=== PATIENT | male | born 2000 | race Caucasian/White ===

== ENCOUNTER 2021-01-29 18:19 | Observation (INO) | payer OTHER, SELFPAY ==
[~2021-01-29] VITALS: Ht 172.7 cm; Wt 72.9 kg
[2021-01-29] MEDS ORDERED: CHARCOAL ACTIVATED LIQUID 25 GM/120 ML BTL PO ONE (18:45)
[2021-01-29] MEDS: NS 1,000 ML IV SCH (18:50)
[2021-01-29 19:01] LABS: BASO # 0.1 10^3/uL (0.0-0.2); BASO % 0.8 % (0.0-1.0); EOS # 0.1 10^3/uL (0.0-0.5); EOS % 0.6 % (0.0-3.0); HEMATOCRIT 47.1 % (42.0-52.0); HEMOGLOBIN 16.1 g/dl (13.5-17.5); LYMPH # 2.8 10^3/uL (1.5-5.0); LYMPH % 33.1 % (24.0-44.0); MEAN CORPUSCULAR HEMOGLOBIN 30.9 pg (27.0-33.0); MEAN CORPUSCULAR HGB CONC 34.2 g/dl (32.0-36.5); MEAN CORPUSCULAR VOLUME 90.4 fl (80.0-96.0); MONO # 0.5 10^3/uL (0.0-0.8); MONO % 5.6 % (2.0-8.0); NEUTROPHILS % 59.7 % (36.0-66.0); PLATELET COUNT, AUTOMATED 342 10^3/uL (150-450); RED BLOOD COUNT 5.21 10^6/uL (4.30-6.10); WHITE BLOOD COUNT 8.4 10^3/uL (4.0-10.0)
[2021-01-29 19:33] LABS: ACETAMINOPHEN LEVEL 48.9 UG/ML (10.0-30.0); ALBUMIN 4.8 GM/DL (3.2-5.2); ALT/SGPT 26 U/L (12-78); BILIRUBIN,DIRECT 0.2 MG/DL (0.0-0.2); BILIRUBIN,TOTAL 0.4 MG/DL (0.2-1.0); BLOOD UREA NITROGEN 5 MG/DL (7-18); CALCIUM LEVEL 11.9 MG/DL (8.5-10.1); CARBON DIOXIDE LEVEL 26 MEQ/L (21-32); CHLORIDE LEVEL 111 MEQ/L (98-107); CREATININE FOR GFR 1.05 MG/DL (0.70-1.30); ETHYL ALCOHOL (ETHANOL) 0.253 % (0.000-0.010); GLOMERULAR FILTRATION RATE > 60.0 (>60); GLUCOSE, FASTING 99 MG/DL (70-100); POTASSIUM SERUM 3.7 MEQ/L (3.5-5.1); SALICYLATE LEVEL < 1.7 MG/DL (5.0-30.0); SODIUM LEVEL 145 MEQ/L (136-145); TOTAL PROTEIN 8.2 GM/DL (6.4-8.2)
[2021-01-29] MEDS ORDERED: HOME MED LIST COMPLETE! XX SCH (20:10)
[2021-01-29 20:13] LABS: RSV AMPLIFICATION NEGATIVE (NEGATIVE)
[2021-01-29 21:33] LABS: AMPHETAMINES LEVEL URINE NEGATIVE (NEGATIVE); BARBITURATES URINE NEGATIVE (NEGATIVE); BENZODIAZEPINES URINE NEGATIVE (NEGATIVE); CANNABINOIDS URINE NEGATIVE (NEGATIVE); COCAINE METABOLITE URINE NEGATIVE (NEGATIVE); METHADONE URINE NEGATIVE (NEGATIVE); OPIATES URINE NEGATIVE (NEGATIVE); PHENCYCLIDINE URINE NEGATIVE (NEGATIVE)
[2021-01-29] MEDS ORDERED: NS 1,000 ML IV ONE ×2 (23:00)
[2021-01-30] VITALS (58 sets, daily range): BP systolic 126–189; BP diastolic 58–104
[2021-01-30] MEDS ORDERED: LORazepam 2 MG/ML VIAL IV STA ×4 (00:42→09:20)
[2021-01-30] MEDS: NS 1,000 ML IV SCH ×3 (02:38→07:28)
[2021-01-30] MEDS ORDERED: ACETAMINOPHEN TAB 650MG DOSE (2X325MG) PO PRN (06:05)
[2021-01-30] MEDS ORDERED: LORazepam 2 MG/ML VIAL IM PRN (09:05)
[2021-01-30] MEDS: ENOXAPARIN 40MG/0.4ML SYRINGE (J1650 PER 10MG) SC SCH (09:24)
[2021-01-30] MEDS: LORazepam 2 MG/ML VIAL IV PRN ×2 (10:15→14:51)
[2021-01-30] MEDS ORDERED: NS 500 ML IV STA (10:27)
[2021-01-30 10:52] LABS: ETHYL ALCOHOL (ETHANOL) < 0.003 % (0.000-0.010)
[2021-01-30 11:26] LABS: ABG BASE EXCESS -3.4 (-2.0-2.0); ABG HCO3 21.6 MEQ/L (22.0-26.0); ABG O2 SATURATION 98.9 % (95.0-99.0); ABG PARTIAL PRESSURE CO2 38.9 mmHg (35.0-45.0); ABG PARTIAL PRESSURE O2 148.2 mmHg (75.0-100.0); ABG STANDARD HCO3 21.7 MEQ/L (22.0-26.0); ABG TOTAL CO2 22.8 MEQ/L (22.0-29.0); ABG pH (ARTERIAL) 7.363 UNITS (7.350-7.450)
[2021-01-30] MEDS ORDERED: MULTIVITAMIN -ADULT INJECTION 10 ML, THIAMINE INJection 100 MG, FOLIC ACID 1 MG in NS 1... IV ONE (12:00)
[2021-01-30 12:05] LABS: BASO # 0.1 10^3/uL (0.0-0.2); BASO % 0.4 % (0.0-1.0); EOS % 0.1 % (0.0-3.0); HEMATOCRIT 41.4 % (42.0-52.0); HEMOGLOBIN 14.3 g/dl (13.5-17.5); LYMPH # 1.9 10^3/uL (1.5-5.0); LYMPH % 16.5 % (24.0-44.0); MEAN CORPUSCULAR HEMOGLOBIN 31.2 pg (27.0-33.0); MEAN CORPUSCULAR HGB CONC 34.5 g/dl (32.0-36.5); MEAN CORPUSCULAR VOLUME 90.4 fl (80.0-96.0); MONO # 0.8 10^3/uL (0.0-0.8); MONO % 7.5 % (2.0-8.0); NEUTROPHILS # 8.5 10^3/uL (1.5-8.5); NEUTROPHILS % 75.1 % (36.0-66.0); PLATELET COUNT, AUTOMATED 299 10^3/uL (150-450); RED BLOOD COUNT 4.58 10^6/uL (4.30-6.10); WHITE BLOOD COUNT 11.3 10^3/uL (4.0-10.0)
[2021-01-30 12:30] LABS: ALBUMIN 4.1 GM/DL (3.2-5.2); ALT/SGPT 31 U/L (12-78); BILIRUBIN,TOTAL 0.5 MG/DL (0.2-1.0); BLOOD UREA NITROGEN 5 MG/DL (7-18); CALCIUM LEVEL 10.4 MG/DL (8.5-10.1); CARBON DIOXIDE LEVEL 20 MEQ/L (21-32); CHLORIDE LEVEL 113 MEQ/L (98-107); CREATININE FOR GFR 1.07 MG/DL (0.70-1.30); GLOMERULAR FILTRATION RATE > 60.0 (>60); GLUCOSE, FASTING 77 MG/DL (70-100); SODIUM LEVEL 143 MEQ/L (136-145); TOTAL PROTEIN 7.1 GM/DL (6.4-8.2)
[2021-01-30] MEDS: HALOPERIDOL 5MG/ML VIAL (J1630 PER 1) IV PRN ×2 (12:54→17:51)
[2021-01-30] MEDS ORDERED: FOLIC ACID 1 MG in NS 50 ML IV SCH (19:10)
[2021-01-30] MEDS ORDERED: LORazepam 2 MG TAB PO PRN (19:10)
[2021-01-30] MEDS ORDERED: LORazepam 2 MG/ML VIAL IV PRN (19:40)
[2021-01-30] MEDS: LORazepam 2 MG/ML VIAL IV SCH ×2 (20:05→23:40)
[2021-01-31] VITALS (33 sets, daily range): BP systolic 117–150; BP diastolic 51–96
[2021-01-31] MEDS: LORazepam 2 MG/ML VIAL IV SCH ×6 (04:00→21:26)
[2021-01-31] MEDS: NICOTINE 21MG/24HR 1 EA TRANSDERMAL TD SCH (05:43)
[2021-01-31 05:51] LABS: BASO # 0.1 10^3/uL (0.0-0.2); BASO % 0.7 % (0.0-1.0); EOS # 0.1 10^3/uL (0.0-0.5); EOS % 1.1 % (0.0-3.0); HEMATOCRIT 43.1 % (42.0-52.0); HEMOGLOBIN 14.6 g/dl (13.5-17.5); LYMPH # 1.8 10^3/uL (1.5-5.0); LYMPH % 24.4 % (24.0-44.0); MEAN CORPUSCULAR HEMOGLOBIN 31.1 pg (27.0-33.0); MEAN CORPUSCULAR HGB CONC 33.9 g/dl (32.0-36.5); MEAN CORPUSCULAR VOLUME 91.9 fl (80.0-96.0); MONO # 0.7 10^3/uL (0.0-0.8); MONO % 9.4 % (2.0-8.0); NEUTROPHILS # 4.8 10^3/uL (1.5-8.5); NEUTROPHILS % 64.1 % (36.0-66.0); PLATELET COUNT, AUTOMATED 220 10^3/uL (150-450); RED BLOOD COUNT 4.69 10^6/uL (4.30-6.10); WHITE BLOOD COUNT 7.5 10^3/uL (4.0-10.0)
[2021-01-31 06:17] LABS: ALBUMIN 3.9 GM/DL (3.2-5.2); ALT/SGPT 31 U/L (12-78); BLOOD UREA NITROGEN 10 MG/DL (7-18); CALCIUM LEVEL 10.6 MG/DL (8.5-10.1); CARBON DIOXIDE LEVEL 27 MEQ/L (21-32); CHLORIDE LEVEL 109 MEQ/L (98-107); CREATININE FOR GFR 1.02 MG/DL (0.70-1.30); GLOMERULAR FILTRATION RATE > 60.0 (>60); GLUCOSE, FASTING 67 MG/DL (70-100); POTASSIUM SERUM 4.3 MEQ/L (3.5-5.1); SODIUM LEVEL 141 MEQ/L (136-145)
[2021-01-31] MEDS: ENOXAPARIN 40MG/0.4ML SYRINGE (J1650 PER 10MG) SC SCH (08:32)
[2021-01-31] MEDS ORDERED: MVI -ADULT INJECTION 10ML VIAL IV SCH (09:00)
[2021-01-31] MEDS ORDERED: NICOTINE 21MG/24HR 1 EA TRANSDERMAL TD SCH (09:00)
[2021-01-31] MEDS ORDERED: THIAMINE 200MG 2ML VIAL IV SCH (09:00)
[2021-01-31] MEDS ORDERED: MULTIVITAMIN -ADULT INJECTION 10 ML, FOLIC ACID 1 MG, THIAMINE INJection 100 MG in NS 1... IV SCH ×8 (12:00)
[2021-01-31] MEDS: NS 1,000 ML IV SCH (17:30)
[2021-01-31] MEDS ORDERED: CEPACOL LOZENGE PO PRN (18:25)
[2021-01-31] MEDS ORDERED: SODIUM CHLORIDE NASAL 0.65% SPRAY BTL (OCEAN) PRN (18:25)
[2021-01-31] MEDS: THIAMINE 100 MG TAB PO SCH (21:31)
[2021-02-01] MEDS: LORazepam 2 MG/ML VIAL IV SCH ×2 (00:45→05:01)
[2021-02-01] MEDS: NS 1,000 ML IV SCH ×2 (02:25→10:46)
[2021-02-01 05:00] VITALS: BP 141/81
[2021-02-01 05:30] VITALS: BP 141/81
[2021-02-01] MEDS ORDERED: LORazepam 2 MG/ML VIAL IV PRN (07:25)
[2021-02-01 08:06] LABS: BASO % 0.5 % (0.0-1.0); EOS # 0.1 10^3/uL (0.0-0.5); EOS % 2.2 % (0.0-3.0); HEMATOCRIT 37.3 % (42.0-52.0); HEMOGLOBIN 13.1 g/dl (13.5-17.5); LYMPH # 1.6 10^3/uL (1.5-5.0); LYMPH % 27.3 % (24.0-44.0); MEAN CORPUSCULAR HEMOGLOBIN 31.6 pg (27.0-33.0); MEAN CORPUSCULAR HGB CONC 35.1 g/dl (32.0-36.5); MEAN CORPUSCULAR VOLUME 90.1 fl (80.0-96.0); MONO # 0.5 10^3/uL (0.0-0.8); MONO % 7.9 % (2.0-8.0); NEUTROPHILS # 3.7 10^3/uL (1.5-8.5); NEUTROPHILS % 61.9 % (36.0-66.0); PLATELET COUNT, AUTOMATED 233 10^3/uL (150-450); RED BLOOD COUNT 4.14 10^6/uL (4.30-6.10)
[2021-02-01 08:42] LABS: ALBUMIN 3.1 GM/DL (3.2-5.2); ALT/SGPT 23 U/L (12-78); BILIRUBIN,TOTAL 0.3 MG/DL (0.2-1.0); BLOOD UREA NITROGEN 9 MG/DL (7-18); CALCIUM LEVEL 9.7 MG/DL (8.5-10.1); CARBON DIOXIDE LEVEL 27 MEQ/L (21-32); CHLORIDE LEVEL 113 MEQ/L (98-107); CREATININE FOR GFR 0.75 MG/DL (0.70-1.30); GLOMERULAR FILTRATION RATE > 60.0 (>60); GLUCOSE, FASTING 99 MG/DL (70-100); POTASSIUM SERUM 3.9 MEQ/L (3.5-5.1); SODIUM LEVEL 144 MEQ/L (136-145); TOTAL PROTEIN 5.8 GM/DL (6.4-8.2)
[2021-02-01] MEDS: FOLIC ACID 1 MG TAB PO SCH (10:45)
[2021-02-01] MEDS: MULTIVITAMINS/MINERALS THERAP 1 TAB PO SCH (10:45)
[2021-02-01] MEDS: ENOXAPARIN 40MG/0.4ML SYRINGE (J1650 PER 10MG) SC SCH (10:45)
[2021-02-01] MEDS: NICOTINE 21MG/24HR 1 EA TRANSDERMAL TD SCH (10:45)
[2021-02-01] MEDS: THIAMINE 100 MG TAB PO SCH ×2 (10:45→21:27)
[2021-02-01] MEDS ORDERED: FOLI1TAB11 PO (11:44)
[2021-02-01] MEDS ORDERED: VITMTA PO (11:53)
[2021-02-01] MEDS ORDERED: THIA100TA PO (11:53)
[2021-02-01] MEDS ORDERED: NICO21PAT TD (11:53)
[2021-02-01 14:00] VITALS: BP 132/88
[2021-02-01 22:00] VITALS: BP 137/76
[2021-02-02 06:00] VITALS: BP 119/60
[2021-02-02 08:18] LABS: BASO % 0.5 % (0.0-1.0); EOS # 0.2 10^3/uL (0.0-0.5); EOS % 2.7 % (0.0-3.0); HEMATOCRIT 39.5 % (42.0-52.0); HEMOGLOBIN 13.9 g/dl (13.5-17.5); LYMPH # 2.1 10^3/uL (1.5-5.0); LYMPH % 33.9 % (24.0-44.0); MEAN CORPUSCULAR HEMOGLOBIN 31.3 pg (27.0-33.0); MEAN CORPUSCULAR HGB CONC 35.2 g/dl (32.0-36.5); MONO # 0.5 10^3/uL (0.0-0.8); NEUTROPHILS # 3.4 10^3/uL (1.5-8.5); NEUTROPHILS % 54.7 % (36.0-66.0); PLATELET COUNT, AUTOMATED 296 10^3/uL (150-450); RED BLOOD COUNT 4.44 10^6/uL (4.30-6.10); WHITE BLOOD COUNT 6.3 10^3/uL (4.0-10.0)
[2021-02-02 08:54] LABS: ALBUMIN 3.5 GM/DL (3.2-5.2); ALT/SGPT 29 U/L (12-78); BILIRUBIN,TOTAL 0.3 MG/DL (0.2-1.0); BLOOD UREA NITROGEN 7 MG/DL (7-18); CALCIUM LEVEL 10.9 MG/DL (8.5-10.1); CARBON DIOXIDE LEVEL 26 MEQ/L (21-32); CHLORIDE LEVEL 111 MEQ/L (98-107); CREATININE FOR GFR 0.76 MG/DL (0.70-1.30); GLOMERULAR FILTRATION RATE > 60.0 (>60); GLUCOSE, FASTING 101 MG/DL (70-100); SODIUM LEVEL 142 MEQ/L (136-145); TOTAL PROTEIN 6.5 GM/DL (6.4-8.2)
[2021-02-02] MEDS: MULTIVITAMINS/MINERALS THERAP 1 TAB PO SCH (08:58)
[2021-02-02] MEDS: THIAMINE 100 MG TAB PO SCH (08:58)
[2021-02-02] MEDS: NICOTINE 21MG/24HR 1 EA TRANSDERMAL TD SCH (08:58)
[2021-02-02] MEDS: FOLIC ACID 1 MG TAB PO SCH (08:58)
[2021-02-02] MEDS: ENOXAPARIN 40MG/0.4ML SYRINGE (J1650 PER 10MG) SC SCH (08:58)
== END 2021-02-02 11:58 ==
LOC: M ED 18:19 → M ED INP 18:20 → M PCU 18:20 → ENRESERV 01-30 06:55 → M PCU 01-30 08:00 → M MSPAV 01-31 15:53
PROVIDERS: ADMIT Family Medicine; ATTEND Internal Medicine
DX: T45.0X2A Poisoning by antiallergic and antiemetic drugs, intentional self-harm, initial encounter (principal); T39.1X2A Poisoning by 4-Aminophenol derivatives, intentional self-harm, initial encounter; T39.312A Poisoning by propionic acid derivatives, intentional self-harm, initial encounter; T51.0X2A Toxic effect of ethanol, intentional self-harm, initial encounter; R41.82 Altered mental status, unspecified; R00.0 Tachycardia, unspecified; R33.0 Drug induced retention of urine; T45.0X5A Adverse effect of antiallergic and antiemetic drugs, initial encounter; R74.8 Abnormal levels of other serum enzymes; Z78.1 Physical restraint status; R45.1 Restlessness and agitation; F32.9 Major depressive disorder, single episode, unspecified
CPT/HCPCS: 36415; 36600; 70450; 71045; 80048; 80053; 80076; 80143; 80307; 81001; 82077; 82140; 82550; 82803; 83605; 84443; 85025; 87040; 87631; 93005; 93041; 94760; 96361; 96372; 96374; 96375; 96376; 99285; J1630; J1650; J2060; J3411

== ENCOUNTER 2021-02-01 15:36 | Inpatient (IN) | payer OTHER, SELFPAY ==
[~2021-02-01] VITALS: Ht 172.7 cm; Wt 60.1 kg
[~2021-02-01 15:36] MED LIST: FOLI1TAB11 PO; NICO21PAT TD; THIA100TA PO; VITMTA PO
[2021-02-02] MEDS ORDERED: ACETAMINOPHEN TAB 650MG DOSE (2X325MG) PO PRN (10:25)
[2021-02-02] MEDS ORDERED: traZODone 50 MG TAB PO PRN (10:25)
[2021-02-02] MEDS ORDERED: MAALOX 30 ML SUSP *UDC PO PRN (10:25)
[2021-02-02] MEDS ORDERED: MOM 30ML SUSPENSION UDC PO PRN (10:25)
[2021-02-02] MEDS: NICOTINE 21MG/24HR 1 EA TRANSDERMAL TD SCH (13:21)
[2021-02-02] MEDS ORDERED: HOME MED LIST COMPLETE! XX SCH (13:45)
[2021-02-02] MEDS ORDERED: hydrOXYzine 50 MG TAB PO PRN (15:00)
[2021-02-02] MEDS ORDERED: SERTRALINE HCL 25 MG TABLET PO ONE (15:00)
[2021-02-02 17:53] VITALS: BP 139/87
[2021-02-03 07:08] VITALS: BP 141/60
[2021-02-03] MEDS: NICOTINE 21MG/24HR 1 EA TRANSDERMAL TD SCH (08:31)
[2021-02-03] MEDS ORDERED: SERTRALINE HCL 50 MG TAB PO SCH (09:00)
[2021-02-03 16:50] VITALS: BP 117/64
[2021-02-04 06:33] VITALS: BP 113/69
[2021-02-04] MEDS: NICOTINE 21MG/24HR 1 EA TRANSDERMAL TD SCH (09:00)
[2021-02-04 19:15] VITALS: BP 130/61
[2021-02-05 06:20] VITALS: BP 127/63
[2021-02-05] MEDS: NICOTINE 21MG/24HR 1 EA TRANSDERMAL TD SCH ×2 (09:00→13:55)
[2021-02-05] MEDS ORDERED: zolPIDEM TARTRATE 5 MG TAB PO PRN (11:35)
[2021-02-06 07:01] VITALS: BP 125/68
[2021-02-06] MEDS: NICOTINE 21MG/24HR 1 EA TRANSDERMAL TD SCH (09:00)
== END 2021-02-06 11:23 | disposition home or self-care (01) | DRG 881 ==
LOC: M PSY 02-02 12:01
PROVIDERS: ADMIT Psychiatry & Neurology Psychiatry; ATTEND Psychiatry & Neurology Psychiatry
DX: F32.A Depression, unspecified (principal); F10.10 Alcohol abuse, uncomplicated; Z91.51 Personal history of suicidal behavior; F17.290 Nicotine dependence, other tobacco product, uncomplicated

== ENCOUNTER → 2021-09-15 | Outpatient (CLI) | payer OTHER | LOC: M WUC 10:10 | PROVIDERS: ATTEND Physician Assistant | DX: S86.891A Other injury of other muscle(s) and tendon(s) at lower leg level, right leg, initial encounter (principal); S86.892A Other injury of other muscle(s) and tendon(s) at lower leg level, left leg, initial encounter ==